=== PATIENT | female | born 1995 | race African-American/Black ===

== ENCOUNTER 2021-08-02 12:44 | Emergency (ER) | payer OTHER, SELFPAY ==
[2021-08-02] VITALS (13 sets, daily range): BP systolic 115–130; BP diastolic 64–90; PULSE 73–82; RESP 16–18; TEMP 36.6–36.7; O2SAT 99–100; BMI 32.5
[2021-08-02] MEDS: KETOROLAC 30 MG/ML VIAL 15 MG IV (13:19)
[2021-08-02] MEDS: ONDANSETRON 4 MG/2 ML INJ IV (13:19)
[2021-08-02] MEDS: SODIUM CHLORIDE 0.9% 1,000 ML 1000 ML IV ×2 (13:19→15:55)
[2021-08-02 13:20] LABS: Add Manual Diff / Slide Review NO; Basophils Absolute Auto 100 /uL (0-100); Basophils Percent Auto 0.8 % (0-2); Eosinophils Absolute Auto 600 /uL (0-450); Eosinophils Percent Auto 5.6 % (2-4); Hematocrit 40.1 % (36-46); Hemoglobin 13.4 g/dL (12.0-16.0); Lymphocytes Absolute Auto 3500 /uL (1100-4500); Mean Corpuscular HGB Conc 33.3 % (30-36); Mean Corpuscular Hemoglobin 27.2 PG (26-34); Mean Corpuscular Volume 81.7 fL (80-100); Monocytes Absolute Auto 1100 /uL (0-900); Monocytes Percent Auto 10.6 % (3-14); Neutrophils Absolute Auto 5300 /uL (1500-7000); Platelet Count 297 X10^3/uL (150-400); Red Blood Cell Count 4.92 X10^6/uL (4.0-5.2); Red Cell Distribution Width 14.8 % (11.6-14.8); White Blood Cell Count 10.6 X10^3/uL (4.5-11.0)
--- NOTE | 2021-08-02 13:31 | ED_ITS ---
HPI - Headache General Chief Complaint: Headache Stated Complaint: lumbar procedure yesterday, now headache Time Seen by Provider: 08/02/21 12:46 History of Present Illness HPI Narrative: Patient is a 26-year-old female history of intracranial hypertension status post lumbar puncture yesterday. She said this is the 2nd lumbar puncture she had 4 this is a. She said the 1st when she did not have any complications. However today she presents with severe headache. It is better when she lies flat and worse whenever she stands or sits. She feels extremely nauseous. She has no numbness tingling or weakness in her lower extremities. No changes in bowel or bladder habits. She has not had any fever or chills. Related Data Home Medications Medication Instructions Recorded Confirmed acetazolamide 250 mg tablet 1,250 mg PO BID 08/02/21 08/02/21 nortriptyline 10 mg capsule See Rx Instructions .ROUTE .COMPLEX 08/02/21 08/02/21 rizatriptan 10 mg tablet 10 mg PO Q2-4H PRN 08/02/21 08/02/21 Previous Rx's Medication Instructions Recorded [id number]-acbkfodqjzgnx-[id number] 1 cap PO Q8H PRN #14 cap 08/02/21 50 mg-300 mg-40 mg capsule (Fioricet) Allergies Allergy/AdvReac Type Severity Reaction Status Date / Time No Known Drug Allergies Allergy Verified 08/02/21 12:47 Review of Systems Review of Systems Narrative: GENERAL: Denies chills, fatigue, malaise, fever, sweats, travel HEENT: Denies sinus pain, ear pain, sore throat, difficulty swallowing, neck pain RESPIRATORY: Denies dyspnea, cough, wheezing, hemoptysis, sputum. CARDIOVASCULAR: Denies chest pain, palpitations, orthopnea, edema GASTROINTESTINAL: Denies nausea, vomiting, abdominal pain, diarrhea, constipation, melena. : Denies dysuria, frequency, incontinence, hematuria, urinary retention, flank pain. MUSCULOSKELETAL: Denies weakness, joint pain, or bony pain SKIN: No rash, no erythema, no pruritus NEUROLOGIC: See HPI PSYCHIATRIC: No concerning psychosocial issues. 12 point review of systems is negative except for those stated above and HPI Patient History Medical History (Updated 08/02/21 @ 17:05 by Rachelle Fields DO) Idiopathic intracranial hypertension Migraine Papilloedema, unspecified Snoring Social History Smoking Status: Never smoker Smoking Status: Never smoker alcohol intake frequency: 0-2 drinks per day Substance Use Type: does not use Exam Initial Vital Signs Initial Vital Signs: Vital Signs Blood Pressure 129/90 08/02/21 12:42 GENERAL: Alert 26-year-old female appears severely uncomfortable. HEENT: Head atraumatic,EOMI, pupils reactive, face symmetric, moist mucous membranes CARDIOVASCULAR: Regular rate and rhythm without murmurs, rubs or gallops. RESPIRATORY: Breath sounds equal bilaterally, no wheezes rales or rhonchi. ABDOMEN: Soft, nontender. Normoactive bowel sounds all 4 quadrants. No g uarding or rebound. EXTREMITIES: Normal range of motion, no clubbing or edema. Neurovascularly inta ct NEUROLOGICAL: Alert and oriented x4.Normal speech. Cranial nerves II through XII grossly intact. Sensation in lower extremities intact moving all extremities. Able to ambulate but bent over due to severe headache. SKIN: Warm, dry, no laceration, no petechiae, no rashes or lesions. Course Orders Ordered: ED Orders 08/02/21 13:15 CBC Auto Diff [Complete Blood Count AUTO DIFF] Stat CMP [Comprehensive Metabolic Panel] Stat Discontinued Medications Acetaminophen/Butalbital/Caffeine (Butalb/Apap/Caffeine 50/325/40 Tablet) 1 each PO NOW ONE Stop: 08/02/21 14:25 Last Admin: 08/02/21 14:44 Dose: 1 each Documented by: CHUYITA Sodium Chloride (Normal Saline 0.9%) 1,000 mls @ 1,000 mls/hr IV BOLUS ONE Stop: 08/02/21 14:07 Last Infusion: 08/02/21 14:44 Dose: 0 mls/hr Documented by: Admin: 08/02/21 13:19 Dose: 1,000 mls/hr Documented by: CHUYITA Sodium Chloride (Normal Saline 0.9%) 1,000 mls @ 1,000 mls/hr IV BOLUS ONE Stop: 08/02/21 16:29 Last Infusion: 08/02/21 17:02 Dose: 0 mls/hr Documented by: Admin: 08/02/21 15:55 Dose: 1,000 mls/hr Documented by: LORENZO Ketorolac Tromethamine (Ketorolac 30 Mg/Ml Vial) 15 mg IV NOW ONE Stop: 08/02/21 13:09 Last Admin: 08/02/21 13:19 Dose: 15 mg Documented by: CHUYITA Morphine Sulfate (Morphine 4 Mg/Ml Inj) 4 mg IV NOW ONE Stop: 08/02/21 15:31 Last Admin: 08/02/21 15:56 Dose: 4 mg Documented by: LORENZO Ondansetron HCl (Ondansetron 4 Mg/2 Ml Inj) 4 mg IV NOW ONE Stop: 08/02/21 13:09 Last Admin: 08/02/21 13:19 Dose: 4 mg Documented by: CHUYITA Vital Signs Vital signs: Vital Signs - 8 hr 08/02/21 12:42 08/02/21 12:43 08/02/21 12:44 Temperature 97.9 F Pulse Rate 81 79 Respiratory Rate 18 Blood Pressure 129/90 129/90 Pulse Oximetry 100 99 08/02/21 13:00 08/02/21 13:30 08/02/21 14:00 Temperature Pulse Rate 74 Respiratory Rate Blood Pressure 121/79 115/75 117/72 Pulse Oximetry 99 08/02/21 14:30 08/02/21 15:00 08/02/21 15:30 Temperature Pulse Rate Respiratory Rate Blood Pressure 117/74 116/64 128/79 Pulse Oximetry 08/02/21 15:57 08/02/21 16:00 08/02/21 16:30 Temperature Pulse Rate 80 82 78 Respiratory Rate 16 Blood Pressure 116/75 121/81 Pulse Oximetry 100 99 100 08/02/21 17:00 Temperature 98.0 F Pulse Rate 73 Respiratory Rate 16 Blood Pressure 130/76 Pulse Oximetry 100 MDM - Headache Lab Data Result diagrams: 08/02/21 13:15 08/02/21 13:15 Labs: Lab Results 08/02/21 08/02/21 Range/Units 13:15 13:15 WBC 10.6 (4.5-11.0) X10^3/uL RBC 4.92 (4.0-5.2) X10^6/uL Hgb 13.4 (12.0-16.0) g/dL Hct 40.1 (36-46) % MCV 81.7 (80-100) fL MCH 27.2 (26-34) PG MCHC 33.3 (30-36) % RDW 14.8 (11.6-14.8) % Plt Count 297 (150-400) X10^3/uL Neut % (Auto) 50.0 (50-75) % Lymph % (Auto) 33.0 (25-40) % [place] % (Auto) 10.6 (3-14) % Eos % (Auto) 5.6 H (2-4) % Baso % (Auto) 0.8 (0-2) % Neut # (Auto) 5300 (3534-4712) /uL Lymph # (Auto) 3500 (6887-6708) /uL [place] # (Auto) 1100 H (0-900) /uL Eos # (Auto) 600 H (0-450) /uL Baso # (Auto) 100 (0-100) /uL Sodium 141 (137-145) mmol/L Potassium 3.8 (3.4-5.1) mmol/L Chloride 111 H (98-107) mmol/L Carbon Dioxide 20 L (22-32) mmol/L BUN 14 (7-17) mg/dL Creatinine 1.12 H (0.52-1.04) mg/dL Estimated GFR > 60 (>60) mL/min BUN/Creatinine Ratio 12.5 (6-22) Glucose 93 (70-100) mg/dL Calcium 9.4 (8.4-10.2) mg/dL Total Bilirubin 0.3 (0.2-1.3) mg/dL AST 22 (14-36) IU/L ALT 13 (<35) IU/L Alkaline Phosphatase 53 (38-126) U/L Total Protein 7.7 (6.3-8.2) g/dL Albumin 4.5 (3.5-5.0) g/dL Globulin 3.2 (1.7-4.1) g/dL Albumin/Globulin Ratio 1.4 (1.0-2.8) Point of Care Testing Test Results Negative Urine Dip Bedside Urine Glucose Negative Bedside Urine Bilirubin - Negative Bedside Urine Ketone - Negative Urine Specific [place] 1.015 Bedside Urine Occult Blood - Negative Bedside Urine pH 7.0 Bedside Urine Protein - Negative Bedside Urine Urobilinogen - Negative Bedside Urine Nitrite - Negative Bedside Urine Leukocytes - Negative Esterase MDM Narrative Medical decision making narrative: Patient's symptoms are consistent with post lumbar puncture headache. It is definitely worse with position. She has no lower extremity weakness or cauda equina syndrome. She is feeling better after 2 L of family along with Toradol and Zofran but not quite better. She is given a dose of Fioricet and morphine. She is finally able to sit up his in ambulate to the bathroom. She says it is much more manageable than what it was. Overall feeling better. Discharge Plan Departure Patient Disposition: Home Clinical Impression: Headache, post-lumbar puncture Instructions: DI for Post-Spinal Puncture Headache Activity Restrictions/Additional Instructions: *You have been diagnosed with post lumbar puncture headache *What to do: At this time increase fluids as tolerated. Lay down and rest as needed *Continue to take medications as directed Fioricet 1 tablet every 4 hours if needed--> this can cause drowsiness please do not drive while taking *Follow up with your primary care provider in 2-3 days or call [phone] *Return to ER if you should have worsening headache, difficulty walking, fevers, inability to urinate or any new, worsening or concerning symptoms Prescriptions: New ypugyimvyf-ilvuqkhhmvptt-ertg [Fioricet] 50-300-40 mg capsule 1 cap PO Q8H PRN (Reason: pain) Qty: 14 0RF No Action rizatriptan 10 mg Tablet 10 mg PO Q2-4H PRN (Reason: Migraine Headache) 0RF Rx Instructions: do not exceed 2 doses per 24 hrs acetazolamide 250 mg Tablet 1,250 mg PO BID 0RF Rx Instructions: 5 x 250 mg tab twice daily nortriptyline 10 mg Capsule See Rx Instructions .ROUTE .COMPLEX 0RF Rx Instructions: take 1 cap @ bed time x7 days (started 08/01) then take 2 cap @ bedtime x 7 days then take 3 cap @ bedtime x 7 days Referrals: Dino Johnson MD [Primary Care Provider] - Stand Alone Forms: Work Release Note
[2021-08-02 13:42] LABS: Alanine Aminotransferase 13 IU/L (<35); Albumin 4.5 g/dL (3.5-5.0); Albumin Globulin Ratio 1.4 (1.0-2.8); Alkaline Phosphatase 53 U/L (38-126); Aspartate Aminotransferase 22 IU/L (14-36); BUN Creatinine Ratio 12.5 (6-22); Bilirubin Total 0.3 mg/dL (0.2-1.3); Blood Urea Nitrogen 14 mg/dL (7-17); Calcium 9.4 mg/dL (8.4-10.2); Carbon Dioxide 20 mmol/L (22-32); Chloride 111 mmol/L (98-107); Estimated Glomerular Filt Rate > 60 mL/min (>60); Globulin 3.2 g/dL (1.7-4.1); Glucose 93 mg/dL (70-100); HEMOLYSIS 18 (0-50); Potassium 3.8 mmol/L (3.4-5.1); Sodium 141 mmol/L (137-145); Total Protein 7.7 g/dL (6.3-8.2)
[2021-08-02] MEDS: BUTALB/APAP/CAFFEINE 50/325/40 TABLET 1 EACH PO (14:44)
[2021-08-02] MEDS: MORPHINE 4 MG/ML INJ IV (15:56)
== END 2021-08-02 17:23 | disposition home or self-care (01) ==
PROVIDERS: Emergency Provider Emergency Medicine; PCP Student in an Organized Health Care Education/Training Program
DX: G97.1 Other reaction to spinal and lumbar puncture (principal); R51.9 Headache, unspecified; R11.0 Nausea
CPT/HCPCS: 80053; 81003; 81025; 85025; 96361; 96374; 96375; 99284; J1885; J2270; J2405